=== PATIENT | female | born 1985 | race Caucasian/White ===

== ENCOUNTER 2018-11-08 08:42 | Inpatient (IN) | payer BC, OTHER ==
[2018-11-08] MEDS ORDERED: TERBUTALINE 1 MG/ML VIAL SQ PRN (10:09)
[2018-11-08] MEDS ORDERED: OXYTOCIN 10 UNIT/ML 1 ML VIAL IM PRN (10:09)
[2018-11-08] MEDS ORDERED: CARBOPROST TROMETHAMINE 250 MCG/ML 1 ML AMP IM PRN (10:09)
[2018-11-08] MEDS ORDERED: LIDOCAINE 0.5% (PF) 5 MG/ML (50 ML SDV) SQ PRN (10:09)
[2018-11-08] MEDS ORDERED: METHYLERGONOVINE 0.2 MG/ML 1 ML AMP IM PRN (10:09)
[2018-11-08] MEDS ORDERED: OXYTOCIN 20 UNITS/1000 ML NS 1,000 ML IV SCH ×2 (10:15→16:51)
[2018-11-08 10:18] VITALS: BMI 24.3
[2018-11-08 10:54] LABS: Basophils # (A) 0.1 k/uL (0-0.2); Basophils % (A) 1 %; Eosinophils # (A) 0.2 k/uL (0-0.7); Eosinophils % (A) 2 %; HCT 36.4 % (34.0-46.0); HGB 11.8 gm/dL (11.4-16.0); Hypochromasia Slight; Lymphocytes # (A) 2.5 k/uL (1.0-4.8); Lymphocytes % (A) 17 %; MCH 27.9 pg (25.0-35.0); MCHC 32.5 g/dL (31.0-37.0); MCV 85.8 fL (80.0-100.0); Mean Platelet Volume 7.6; Monocytes # (A) 0.8 k/uL (0-1.0); Monocytes % (A) 6 %; Neutrophils % (A) 71 %; Platelet Count 307 k/uL (150-450); RBC 4.24 m/uL (3.80-5.40); RDW 14.8 % (11.5-15.5); WBC 14.1 k/uL (3.8-10.6)
[2018-11-08] MEDS ORDERED: ROPIVACAINE 5MG/ML 20ML VIAL ONE (11:14)
[2018-11-08] MEDS ORDERED: SODIUM CHLORIDE 0.9% 100 ML BAG ONE (11:14)
[2018-11-08] MEDS ORDERED: fentaNYL (PF) 50 MCG/ML 5 ML AMP ONE (11:14)
[2018-11-08] MEDS: LACTATED RINGERS 1,000 ML IV SCH ×2 (11:36→14:56)
[2018-11-08] MEDS ORDERED: ROPIVACAINE 100 MG, fentaNYL (PF) 200 MCG in SODIUM CHLORIDE 0.9% 76 ML EPIDURAL ONE (11:53)
--- NOTE | 2018-11-08 12:24 | P.HPOB ---
History of Present Illness H&P Date: 11/08/18 Chief Complaint: contractions. This patient is a pleasant 33-year-old 2 para 1 female estimated date of confinement to 2018 estimated gestational age 39 weeks who presents to labor and delivery with complaints of regular painful contractions. Patient was 2 cm dilated and office is found to be 4 cm dilated in active labor. care has been uncomplicated. Review of Systems Gastrointestinal: Reports heartburn Genitourinary: Reports Menstruation: Reports amenorrhea Past Medical History Past Medical History: Seizure Disorder Additional Past Medical History / Comment(s): pt states her last seizure was 2 years ago pt states shes not on any medication for her seizure History of Any Multi-Drug Resistant Organisms: None Reported Past Surgical History: Orthopedic Surgery Past Psychological History: Anxiety Smoking Status: Former smoker Past Alcohol Use History: None Reported Past Drug Use History: None Reported - Past Family History Father Family Medical History: No Reported History Medications and Allergies Home Medications Medication Instructions Recorded Confirmed Type No Known Home Medications 11/08/18 11/08/18 History Allergies Allergy/AdvReac Type Severity Reaction Status Date / Time No Known Allergies Allergy Verified 11/08/18 08:55 Exam Vital Signs Temp Pulse Resp BP Pulse Ox 11/08/18 10:27 98 F 74 16 116/74 98 11/08/18 10:02 98 F 74 16 116/74 98 Intake and Output 11/07/18 11/08/18 11/08/18 22:59 06:59 14:59 Other: Weight 72.575 kg - OBG Physical Exam Abdomen: bowel sounds normal, no diffuse tenderness, no bruit present, no guarding noted, no hepatomegaly, no splenomegaly, no mass Vulva: both: normal Vagina: normal moisture, no discharge Cervix: no lesion (cervix is 4 cm 80% effaced -2 station artificial rupture membranes shows moderately thick meconium fluid.), no discharge Uterus: enlarged (fundal height is 38 cm) Results blood work shows she is O positive, rubella immune, RPR nonreactive, HIV nonreactive, hepatitis B negative, ultrasounds have been normal, Glucola was 168 with a normal three-hour gtt., group B strep was negative Result Diagrams: 11/08/18 10:00 Abnormal Lab Results - Last 24 Hours (Table) 11/08/18 Range/Units 10:00 WBC 14.1 H (3.8-10.6) k/uL Neutrophils # 10.0 H (1.3-7.7) k/uL Assessment and Plan Assessment: This is a pleasant 33-year-old 2 para 1 female 39 weeks gestation with active labor. Rupture membranes shows moderate meconium-stained fluid, heart tones are reactive. Plan is anticipate vaginal delivery and we will alert the anesthesia staff as to the meconium fluid. Dr. Lopez will be taken over this patient at this time. (1) 39 weeks gestation of Current Visit: Yes Status: Acute Code(s): Z3A.39 - 39 WEEKS GESTATION OF SNOMED Code(s): 17969516 (2) Normal labor Current Visit: Yes Status: Acute Code(s): O80 - ENCOUNTER FOR FULL-TERM UNCOMPLICATED DELIVERY; Z37.9 - OUTCOME OF DELIVERY, UNSPECIFIED SNOMED Code(s ): 07783759 (3) Meconium in amniotic fluid affecting management of mother Current Visit: Yes Status: Acute Code(s): O36.8990 - MATERNAL CARE FOR OTH PROBLEMS, UNSP TRIMESTER, UNSP SNOMED Code(s): 35228449
--- NOTE | 2018-11-08 12:35 | P.MSEPDOC ---
Presenting Problems - Arrival Data Date of Arrival on Unit: 11/08/18 Time of Arrival on Unit: 08:51 Mode of Transport: Ambulatory - Complaint OB-Reason for Admission/Chief Complaint: Other Comment: c/o contractions Medical History - Information : 2 Para: 1 Term: 1 : 0 Abortions: Spontaneous or Elective: 0 Number of Living Children: 1 - Gestational Age Gestational Age by VISH (wks/days): 39 Weeks and 0 Days Review of Systems - Review of Systems Constitutional: No problems Breast: No problems ENT: No problems Cardiovascular: No problems Respiratory: No problems Gastrointestinal: No problems Genitourinary: No problems Musculoskeletal: No problems Neurological: No problems Skin: No problems Vital Signs - Temperature Temperature: 98 F Temperature Source: Oral - Pulse Right Brachial Pulse Rate: 74 Pulse Assessment Method: Automatic Cuff - Respirations Respiratory Rate: 16 Oxygen Delivery Method: Room Air O2 Sat by Pulse Oximetry: 98 - Blood Pressure Right Arm Blood Pressure: 116/74 Blood Pressure Mean: 88 Blood Pressure Source: Automatic Cuff Medical Screen Scoring (Pre) - Cervical Exam Dilation: 1-3 cm = 1 Effacement: More than 50% = 2 Membranes: Intact - Uterine Contractions Frequency: > or = 36 weeks =2 Duration: > 40 seconds = 2 Intensity: Contraction palpated strong = 1 - Maternal Vital Signs Maternal Temperature: N/A Maternal Blood Pressure: N/A Signs of Preeclampsia: N/A Maternal Respirations: N/A - Assessment Baseline FHR: 130 Heart Rate - NICHD Category: Category I (Normal) = 0 NST: Reactive - Total Score Total Score (Pre): 8 - Level of Risk Level of Risk: Medium (6-9) Physician Notification (Pre) - Notification Comment Comment: pt admitted for labor Disposition - Disposition OB Disposition: Admit I agree with the RN Medical Screening Exam: Yes Risk & Benefit of care provided described in d/c instruction: Yes Diagnosis: ENCOUNTER FOR FULL-TERM UNCOMPLICATED DELIVERY
[2018-11-08] MEDS ORDERED: BISACODYL 10 MG SUPP RECTAL PRN (16:51)
[2018-11-08] MEDS ORDERED: SIMETHICONE 80 MG CHEWABLE PO PRN (16:51)
[2018-11-08] MEDS ORDERED: ACETAMINOPHEN TAB 325 MG TAB PO PRN (16:51)
[2018-11-08] MEDS ORDERED: diphenhydrAMINE 25 MG CAP PO PRN (16:51)
[2018-11-08] MEDS ORDERED: BENZOCAINE/MENTHOL SPRAY 1 GM/SPRAY AEROSOL TOPICAL PRN (16:51)
[2018-11-08] MEDS ORDERED: LANOLIN CREAM 5 GM TUBE TOPICAL PRN (16:51)
[2018-11-08] MEDS ORDERED: WITCH HAZEL 1 EACH MED..PAD TOPICAL PRN (16:51)
[2018-11-08] MEDS ORDERED: diphenhydrAMINE 50 MG/ML 1 ML VIAL IVP PRN (16:51)
[2018-11-08] MEDS ORDERED: HYDROCORTISONE 2.5% RECTAL CREAM 30 GM TUBE RECTAL PRN (16:51)
[2018-11-08] MEDS ORDERED: ZOLPIDEM 5 MG TAB PO PRN (16:51)
--- NOTE | 2018-11-08 18:13 | P.PROBDLV ---
Vaginal Delivery Note - . Vaginal Delivery Note: The patient progressed to complete dilation after oxytocin augmentation of labor and artificial rupture membranes with meconium fluid noted. She did receive epidural anesthesia. Once reaching complete dilation, she began pushing. 's head came to a crown. With one further push, the 's head delivered across the perineum followed by the anterior shoulder in a right occiput anterior lie. Nose and mouth were bulb suctioned at the perineum. Nuchal cord times one was doubly clamped and cut and reduced around the infant' s head. With one further push, the infant easily delivered and was placed on mother's abdomen and nose and mouth were again bulb suctioned. was taken to [facility] for evaluation by pediatric nursing staff, and [employer] was present for delivery. A viable female was noted with scores of 8 at 1 minute and 9 at 5 minutes and weight was 7 pounds 10.8 ounces. Placenta delivered shortly thereafter, intact, with a three-vessel cord. Uterus contracted well after oxytocin was given and uterine massage was carried out. A gloved hand was placed into the intrauterine cavity and no further membranes were palpated. Inspection of the perineum revealed a second-degree perineal laceration. This area was anesthetized with 1% lidocaine and sutured with 3-0 and 2-0 Vicryl suture in the usual multilayer fashion. She did have some bilateral periurethral abrasions that were noted to be hemostatic. Estimated blood loss is approximately 200 mL's. Both mother and are in stable condition.
[2018-11-08] MEDS: SENNOSIDES-DOCUSATE SODIUM 1 EACH TAB PO SCH (20:16)
[2018-11-08] MEDS: IBUPROFEN 600 MG TAB PO PRN (20:16)
[2018-11-09] MEDS: IBUPROFEN 600 MG TAB PO PRN ×4 (03:57→23:15)
--- NOTE | 2018-11-09 06:03 | P.PNOBGVD ---
Subjective - Subjective Patient reports: Reports appetite normal, Reports voiding normally, Reports pain well controlled, Reports ambulating normally : doing well Objective - Latest Vital Signs Latest vital signs: Vital Signs Temp Pulse Resp BP Pulse Ox 11/09/18 04:00 98.2 F 52 L 16 104/65 11/09/18 00:00 98.2 F 60 16 119/70 97 11/08/18 20:00 98.4 F 66 16 118/79 11/08/18 18:50 84 16 121/68 11/08/18 18:23 98.4 F 86 20 118/61 11/08/18 17:53 93 16 120/67 11/08/18 17:35 77 16 114/59 11/08/18 17:23 76 16 114/59 11/08/18 17:05 90 16 129/66 11/08/18 16:53 98.9 F 87 16 122/62 11/08/18 12:35 98 F 74 16 116/74 98 11/08/18 10:27 98 F 74 16 116/74 98 11/08/18 10:02 98 F 74 16 116/74 98 Intake and Output 11/08/18 11/08/18 11/09/18 14:59 22:59 06:59 Intake Total 50 Output Total 200 Balance 50 -200 Intake: Oral 50 Output: Estimated Blood Loss 200 Other: # Voids 2 Weight 72.575 kg - Exam Lungs: bilateral: normal Chest: Normal S1, Normal S2 Extremities: Present: normal Abdomen: Present: normal appearance, soft Uterus: Present: normal, firm - Labs Labs: Abnormal Lab Results - Last 24 Hours (Table) 11/08/18 Range/Units 10:00 WBC 14.1 H (3.8-10.6) k/uL Neutrophils # 10.0 H (1.3-7.7) k/uL Assessment and Plan Assessment: day #1. Patient is resting without complaints. Vital signs are stable she's afebrile. Uterus is firm nontender and she is normal lochia. I impression is a normal course. Patient's plan stained today we'll go home tomorrow. (1) 39 weeks gestation of Current Visit: Yes Status: Acute Code(s): Z3A.39 - 39 WEEKS GESTATION OF SNOMED Code(s): 56284148 (2) Normal labor Current Visit: Yes Status: Acute Code(s): O80 - ENCOUNTER FOR FULL-TERM UNCOMPLICATED DELIVERY; Z37.9 - OUTCOME OF DELIVERY, UNSPECIFIED SNOMED Code(s ): 95334673 (3) Meconium in amniotic fluid affecting management of mother Current Visit: Yes Status: Acute Code(s): O36.8990 - MATERNAL CARE FOR OTH PROBLEMS, UNSP TRIMESTER, UNSP SNOMED Code(s): 36621647
[2018-11-09] MEDS: HYDROcodone/APAP 5-325MG 1 EACH TAB PO PRN ×3 (08:22→19:49)
[2018-11-09] MEDS: SENNOSIDES-DOCUSATE SODIUM 1 EACH TAB PO SCH (08:22)
[2018-11-10] MEDS: SENNOSIDES-DOCUSATE SODIUM 1 EACH TAB PO SCH ×2 (01:18→09:40)
[2018-11-10] MEDS: HYDROcodone/APAP 5-325MG 1 EACH TAB PO PRN ×2 (02:31→09:38)
[2018-11-10] MEDS: IBUPROFEN 600 MG TAB PO PRN (05:27)
--- NOTE | 2018-11-10 06:05 | P.PNOBGVD ---
Subjective - Subjective Patient reports: Reports appetite normal, Reports voiding normally, Reports pain well controlled, Reports ambulating normally : doing well Objective - Latest Vital Signs Latest vital signs: Vital Signs Temp Pulse Resp BP Pulse Ox 11/09/18 23:45 97.8 F 53 L 16 120/70 99 11/09/18 15:00 97.9 F 84 20 129/85 11/09/18 07:57 98.5 F 77 16 123/72 Intake and Output 11/09/18 11/09/18 11/10/18 14:59 22:59 06:59 Intake Total 300 Balance 300 Intake: Oral 300 Other: # Voids 1 1 1 - Exam Lungs: bilateral: normal Chest: Normal S1, Normal S2 Extremities: Present: normal Abdomen: Present: normal appearance, soft Uterus: Present: normal, firm Assessment and Plan Assessment: day #2. Patient is resting without new complaints wishes to go home. Vital signs are stable she is afebrile. Uterus is firm nontender she's having normal lochia. My impression this is a normal course. Plan is to continue routine care discharge home later today. (1) 39 weeks gestation of Current Visit: Yes Status: Acute Code(s): Z3A.39 - 39 WEEKS GESTATION OF SNOMED Code(s): 49919229 (2) Normal labor Current Visit: Yes Status: Acute Code(s): O80 - ENCOUNTER FOR FULL-TERM UNCOMPLICATED DELIVERY; Z37.9 - OUTCOME OF DELIVERY, UNSPECIFIED SNOMED Code(s ): 88079728 (3) Meconium in amniotic fluid affecting management of mother Current Visit: Yes Status: Acute Code(s): O36.8990 - MATERNAL CARE FOR OTH PROBLEMS, UNSP TRIMESTER, UNSP SNOMED Code(s): 14258722
--- NOTE | 2018-11-10 06:17 | P.DS ---
Providers Date of admission: 11/08/18 09:43 Expected date of discharge: 11/10/18 Attending physician: Will Mooney Primary care physician: Stated None - Discharge Diagnosis(es) (1) 39 weeks gestation of Current Visit: Yes Status: Acute (2) Normal labor Current Visit: Yes Status: Acute (3) Meconium in amniotic fluid affecting management of mother Current Visit: Yes Status: Acute Hospital Course: Please see dictated H&P for intimate details of this patient's admission. Brief summary is a pleasant 33-year-old 2 para 1 female 39 weeks gestation admitted to labor and delivery in active labor. Patient was on have a vaginal delivery viable female . Please see dictated delivery note. day #2 patient's felt be stable for discharge home follow up with me in 6 weeks. Procedures: Normal spontaneous vaginal delivery Patient Condition at Discharge: Good Plan - Discharge Summary New Discharge Prescriptions: New HYDROcodone/APAP 5-325MG [[place] 5-325] 1 each PO Q6HR PRN #12 tab PRN Reason: Moderate Pain Ibuprofen [Motrin] 600 mg PO Q6HR PRN #40 tab PRN Reason: Mild Pain Or Fever >= 100.5 Discharge Medication List HYDROcodone/APAP 5-325MG [[place] 5-325] 1 each PO Q6HR PRN #12 tab 11/10/18 [Rx] Ibuprofen [Motrin] 600 mg PO Q6HR PRN #40 tab 11/10/18 [Rx] Follow up Appointment(s)/Referral(s): Will Mooney MD [STAFF PHYSICIAN] - 12/20/18 11:15 am Patient Instructions/Handouts: Vaginal Delivery (DC) Activity/Diet/Wound Care/Special Instructions: No intercourse or anything per vagina for 6 weeks. Please call if any fever, chills, excessive vaginal bleeding, and/or abdominal pain. Discharge Disposition: HOME SELF-CARE
[2018-11-10 09:20] VITALS: BP 118/75; PULSE 82; RESP 18; TEMP 98
== END 2018-11-10 10:58 | disposition home or self-care (01) | DRG 807 ==
LOC: FBPOP 08:42 → 4FBP 09:43
PROVIDERS: ADMIT Obstetrics & Gynecology; ATTEND Obstetrics & Gynecology
PROC: 10E0XZZ Delivery of Products of Conception, External Approach (ICD-10-PCS; principal; 2018-11-08)
PROC: 0KQM0ZZ Repair Perineum Muscle, Open Approach (ICD-10-PCS; 2018-11-08)
DX: O70.1 Second degree perineal laceration during delivery (principal); Z37.0 Single live birth; O77.0 Labor and delivery complicated by meconium in amniotic fluid; Z3A.39 39 weeks gestation of pregnancy
CPT/HCPCS: 59025; 85025; 86850; 86900; 86901; 88307; 99213

== ENCOUNTER 2019-04-18 23:43 | Emergency (ER) | payer OTHER ==
[2019-04-19 00:15] LABS: Basophils # (A) 0.2 k/uL (0-0.2); Basophils % (A) 1 %; Eosinophils # (A) 0.7 k/uL (0-0.7); Eosinophils % (A) 5 %; HCT 39.6 % (34.0-46.0); HGB 12.4 gm/dL (11.4-16.0); Lymphocytes # (A) 5.4 k/uL (1.0-4.8); Lymphocytes % (A) 38 %; MCH 27.6 pg (25.0-35.0); MCHC 31.4 g/dL (31.0-37.0); MCV 87.9 fL (80.0-100.0); Mean Platelet Volume 7.3; Monocytes # (A) 0.7 k/uL (0-1.0); Monocytes % (A) 5 %; Neutrophils # (A) 6.7 k/uL (1.3-7.7); Neutrophils % (A) 47 %; Platelet Count 414 k/uL (150-450); RBC 4.51 m/uL (3.80-5.40); RDW 14.2 % (11.5-15.5); WBC 14.3 k/uL (3.8-10.6)
[2019-04-19] MEDS ORDERED: KETAMINE 50 MG/ML 10 ML VIAL IM ONE (00:15)
[2019-04-19 00:25] LABS: Appearance,Urine Clear (Clear); Bilirubin,Urine Negative (Negative); Blood,Urine Negative (Negative); Color,Urine Light Yellow; Glucose,Urine (UA) Negative (Negative); Ketones,Urine Negative (Negative); Leukocyte Esterase,Urine Negative (Negative); Nitrite,Urine Negative (Negative); PH, Urine 5.5 (5.0-8.0); Protein,Urine Negative (Negative); Specific Gravity,Urine 1.004 (1.001-1.035); Urobilinogen,Urine <2.0 mg/dL (<2.0)
[2019-04-19 00:29] LABS: INR 0.9 (<1.2); Partial Thromboplastin Time 22.7 sec (22.0-30.0); Prothrombin Time 9.7 sec (9.0-12.0)
[2019-04-19 00:30] LABS: ALT 14 U/L (9-52); AST 23 U/L (14-36); African American GFR (CKD) >90 (>60 ml/min/1.73 sqM); Albumin 5.3 g/dL (3.5-5.0); Alkaline Phosphatase 107 U/L (38-126); Anion Gap 19 mmol/L; Blood Urea Nitrogen 15 mg/dL (7-17); Carbon Dioxide 19 mmol/L (22-30); Chloride 110 mmol/L (98-107); Glucose 121 mg/dL (74-99); Sodium 148 mmol/L (137-145); Total Bilirubin 0.4 mg/dL (0.2-1.3); Total Protein 8.5 g/dL (6.3-8.2)
[2019-04-19 00:35] LABS: Alcohol 291 mg/dL
[2019-04-19 01:03] LABS: Amphetamine Screen,Urine Not Detected (NotDetected); Barbiturate Screen,Urine Not Detected (NotDetected); Benzodiazepines Screen,Urine Not Detected (NotDetected); Cocaine Screen,Urine Not Detected (NotDetected); Methadone Screen, Urine Not Detected (NotDetected); Opiate Screen,Urine Not Detected (NotDetected); Oxycodone Screen, Urine Not Detected (NotDetected); Phencyclidine Screen,Urine Not Detected (NotDetected); Tricyclic Antidepressant,Urine Not Detected (NotDetected); Urn Cannabinoid Scrn Detected (NotDetected)
[2019-04-19] MEDS ORDERED: SODIUM CHLORIDE 0.9% 1,000 ML IV ONE ×2 (01:12→03:17)
--- NOTE | 2019-04-19 01:14 | XR ---
INDICATION: Trauma. COMPARISON: None. FINDINGS: AP view of the pelvis is submitted for interpretation. The sacroiliac joints, hip joints, and pubic symphysis are normally aligned. There is no evidence of acute fracture. IMPRESSION: No fracture or subluxation.
--- NOTE | 2019-04-19 01:15 | CT ---
CT CHEST With Contrast CT ABDOMEN + PELVIS With Contrast INDICATION: Trauma TECHNIQUE: CT acquisition is performed through the chest:, Abdomen, and pelvis following the administration of 100 mL Isovue-300 IV contrast. Coronal and sagittal reformatted images are provided. DOSE INFORMATION: DLP 604.7 mGy-cm. This CT exam was performed using one or more of the following dose reduction techniques: automated exposure control, adjustment of the mA and/or kV according to patient size, and/or use of iterative reconstruction technique. COMPARISON: None. FINDINGS: Chest: The thoracic aorta and main pulmonary artery are normal in caliber. The heart is normal in size. There is no pericardial effusion. There is no adenopathy. The lungs demonstrate mild dependent atelectatic changes. There is no airspace consolidation, pleural effusion, or pneumothorax. There are no acute osseous findings. Abdomen + Pelvis: There is no evidence of solid organ, vascular, bowel, or bladder injury. There is no free fluid or free air. Liver, gallbladder, spleen, pancreas, adrenal glands, and kidneys are unremarkable. Aorta and IVC are normal. There is no adenopathy. There are no obstructive or inflammatory changes of the bowel. The appendix is normal. Urinary bladder and uterus are unremarkable. There are no acute osseous findings. IMPRESSION: 1. No evidence of acute traumatic injury in the chest, abdomen, or pelvis. INDICATION: Trauma TECHNIQUE: CT acquisition is performed through the cervical spine. Coronal and sagittal reformatted images are provided. No IV contrast is administered. DOSE INFORMATION: DLP 230.2 mGy-cm. This CT exam was performed using one or more of the following dose reduction techniques: automated exposure control, adjustment of the mA and/or kV according to patient size, and/or use of iterative reconstruction technique. COMPARISON: None. FINDINGS: There is normal vertebral body height and alignment. There is no evidence of acute fracture or subluxation. Disc spaces are preserved. There is no high-grade spinal canal or foraminal narrowing. There is no prevertebral soft tissue swelling. The lung apices are clear. IMPRESSION: No evidence of acute osseous abnormality.
--- NOTE | 2019-04-19 01:15 | XR ---
INDICATION: Trauma. COMPARISON: None. FINDINGS: AP view of the chest is submitted for interpretation. Heart size and pulmonary vascularity are normal. The lungs are clear. There is no pleural effusion or pneumothorax. Regional skeleton appears intact. IMPRESSION: No evidence of acute cardiopulmonary process.
--- NOTE | 2019-04-19 01:15 | CT ---
CT HEAD INDICATION: Trauma TECHNIQUE: CT acquisition is performed through the brain. Coronal and sagittal reformatted images are provided. No IV contrast is administered. DOSE INFORMATION: DLP 1073 mGy-cm. This CT exam was performed using one or more of the following dose reduction techniques: automated exposure control, adjustment of the mA and/or kV according to patient size, and/or use of iterative reconstruction technique. COMPARISON: None. FINDINGS: There is no evidence of acute intracranial hemorrhage or abnormal extra-axial fluid collection. There is no mass effect or midline shift. Sulci, ventricles, and basal cisterns are normal in size and configuration. The begum-white matter differentiation is preserved. The calvarium is intact. The visualized paranasal sinuses and mastoid air cells are clear. IMPRESSION: No CT evidence of acute intracranial process. CT C SPINE INDICATION: Trauma TECHNIQUE: CT acquisition is performed through the cervical spine. Coronal and sagittal reformatted images are provided. No IV contrast is administered. DOSE INFORMATION: DLP 230.2 mGy-cm. This CT exam was performed using one or more of the following dose reduction techniques: automated exposure control, adjustment of the mA and/or kV according to patient size, and/or use of iterative reconstruction technique. COMPARISON: None. FINDINGS: There is normal vertebral body height and alignment. There is no evidence of acute fracture or subluxation. Disc spaces are preserved. There is no high-grade spinal canal or foraminal narrowing. There is no prevertebral soft tissue swelling. The lung apices are clear. IMPRESSION: No evidence of acute osseous abnormality.
[2019-04-19 01:57] LABS: Anisocytosis (M) Present
[2019-04-19 01:58] LABS: Large Platelets Present
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
[2019-04-19 05:00] VITALS: BP 128/77; PULSE 86; RESP 17; TEMP 97.8
== END 2019-04-19 05:35 | disposition home or self-care (01) ==
LOC: EC 23:43
DX: F10.129 Alcohol abuse with intoxication, unspecified (principal); R45.1 Restlessness and agitation; R00.0 Tachycardia, unspecified; Z87.891 Personal history of nicotine dependence; V48.5XXA Car driver injured in noncollision transport accident in traffic accident, initial encounter; Y92.410 Unspecified street and highway as the place of occurrence of the external cause
CPT/HCPCS: 99285; 96360; 96361 ×2; 36415; 93005; 86900; 86901; 80053; 83605; 84484; 85025; 85610; 85730; 86850; 81003; 81025; 80306; 80320; 72170; 71045; 72125; 70450; 71260; 74177; Q9967

== ENCOUNTER 2021-08-09 12:24 | Emergency (ER) | payer OTHER ==
[2021-08-09 12:29] VITALS: TEMP 98.4
[2021-08-09] MEDS ORDERED: SODIUM CHLORIDE 0.9% 1,000 ML IV STA (12:35)
[2021-08-09 12:58] LABS: Basophils # (A) 0.1 k/uL (0-0.2); Basophils % (A) 1 %; Eosinophils # (A) 0.2 k/uL (0-0.7); Eosinophils % (A) 2 %; HGB 12.5 gm/dL (11.4-16.0); Lymphocytes # (A) 2.8 k/uL (1.0-4.8); Lymphocytes % (A) 24 %; MCHC 32.1 g/dL (31.0-37.0); MCV 93.3 fL (80.0-100.0); Mean Platelet Volume 7.7; Monocytes # (A) 0.6 k/uL (0-1.0); Monocytes % (A) 5 %; Neutrophils % (A) 66 %; Platelet Count 388 k/uL (150-450); RBC 4.18 m/uL (3.80-5.40); RDW 13.8 % (11.5-15.5)
[2021-08-09] MEDS ORDERED: ACETAMINOPHEN TAB 500 MG TAB PO STA (13:02)
[2021-08-09 13:12] LABS: ALT 14 U/L (4-34); AST 23 U/L (14-36); African American GFR (CKD) >90 (>60 ml/min/1.73 sqM); Alcohol <10 mg/dL; Alkaline Phosphatase 76 U/L (38-126); Anion Gap 11 mmol/L; Blood Urea Nitrogen 10 mg/dL (7-17); Calcium 9.5 mg/dL (8.4-10.2); Carbon Dioxide 16 mmol/L (22-30); Chloride 106 mmol/L (98-107); Creatine Kinase 130 U/L (30-135); Glucose 120 mg/dL (74-99); Magnesium 1.7 mg/dL (1.6-2.3); Non-African American GFR(CKD) >90 (>60 ml/min/1.73 sqM); Potassium 3.6 mmol/L (3.5-5.1); Sodium 133 mmol/L (137-145); Total Bilirubin 0.5 mg/dL (0.2-1.3); Total Protein 6.9 g/dL (6.3-8.2)
--- NOTE | 2021-08-09 14:11 | ED ---
Seizure HPI <Romario Moore Marianela - Last Filed: 08/09/21 17:06> - General Source: patient, EMS Mode of arrival: EMS <Constance Cha - Last Filed: 08/10/21 14:37> - General Chief Complaint: Seizure Stated Complaint: Seizure Time Seen by Provider: 08/09/21 12:25 - History of Present Illness Initial Comments: 35-year-old female past medical history of epilepsy presents emergency department after she had 2 seizures at home. is at bedside and helps provide history. Patient had first seizure around 5 AM while the was in the shower. Unsure how long the seizure lasted. The patient did return to her normal baseline. She had a second seizure around 10:30 AM. This was when the found the patient on the floor next to the couch that she had been sitting on. Last seizure was approximately 3-4 months ago. She has not seen a neurologist in 8 years. Her medications are normally prescribed by Dr. Hernandez. She was started on Viibryd 6 months ago. The patient did bite her tongue. No bowel or bladder incontinence. Does report to a strong global headache without visual changes. No neck pain or stiffness. No recent fevers, chills or infections. Denies concern for . No other alleviating, precipitating or modifying factors (Constance Cha) - Related Data Previous Rx's Medication Instructions Recorded HYDROcodone/APAP 5-325MG [[place] 1 each PO Q6HR PRN #12 tab 11/10/18 5-325] Ibuprofen [Motrin] 600 mg PO Q6HR PRN #40 tab 11/10/18 Allergies Allergy/AdvReac Type Severity Reaction Status Date / Time No Known Allergies Allergy Verified 08/09/21 12:29 Review of Systems ROS Other: All systems not noted in ROS Statement are negative. <YolieRomario murray - Last Filed: 08/09/21 17:06> ROS Other: All systems not noted in ROS Statement are negative. <Constance Cha - Last Filed: 08/10/21 14:37> ROS Statement: Those systems with pertinent positive or pertinent negative responses have been documented in the HPI. Past Medical History Past Medical History: Seizure Disorder Additional Past Medical History / Comment(s): pt states her last seizure was 2 years ago pt states shes not on any medication for her seizure History of Any Multi-Drug Resistant Organisms: None Reported Past Surgical History: Orthopedic Surgery Past Psychological History: Anxiety Past Alcohol Use History: None Reported Past Drug Use History: None Reported - Past Family History Father Family Medical History: No Reported History <Constance Cha Clare - Last Filed: 08/10/21 14:37> General Exam General appearance: alert, anxious, other (crying) Head exam: Present: atraumatic, normocephalic, normal inspection Eye exam: Present: normal appearance, PERRL, EOMI. Absent: scleral icterus, conjunctival injection, periorbital swelling ENT exam: Present: mucous membranes moist, other (ecchymosis bilateral sides of tongue) Neck exam: Present: normal inspection. Absent: tenderness, meningismus, lymphadenopathy Respiratory exam: Present: normal lung sounds bilaterally. Absent: respiratory distress, wheezes, rales, rhonchi, stridor Cardiovascular Exam: Present: regular rate, normal rhythm, normal heart sounds. Absent: systolic murmur, diastolic murmur, rubs, gallop, clicks GI/Abdominal exam: Present: soft, normal bowel sounds. Absent: distended, tenderness, guarding, rebound, rigid Extremities exam: Present: normal inspection, full ROM, normal capillary refill. Absent: tenderness, pedal edema, joint swelling, calf tenderness Back exam: Present: normal inspection Neurological exam: Present: alert, oriented X3, CN II-XII intact Psychiatric exam: Present: anxious, other (crying) Skin exam: Present: warm, dry, intact, normal color. Absent: rash <Constance Cha - Last Filed: 08/10/21 14:37> Course Vital Signs 08/09/21 08/09/21 08/09/21 12:25 15:04 17:40 Temperature 98.4 F Pulse Rate 78 74 68 Respiratory 18 18 16 Rate Blood Pressure 96/52 103/57 103/64 O2 Sat by Pulse 100 99 98 Oximetry Medical Decision Making - Lab Data Result diagrams: 08/09/21 12:38 08/09/21 12:38 <Romario Moore - Last Filed: 08/09/21 17:06> - Lab Data Result diagrams: 08/09/21 12:38 08/09/21 12:38 <Constance Cha - Last Filed: 08/10/21 14:37> - Medical Decision Making UA showing 2+ ketones, 7 white cells, no bacteria, culture will be sent. Patient is not having any urinary symptoms. She is feeling much better and eager for discharge. Lactic acid normalized. (Romario Moore) Upon arrival the patient is placed into room 1. A thorough history and physical exam is performed. IV is established the patient is given a liter bolus of normal saline. She is also given a gram of Tylenol for her headache. Laboratory studies are conducted and she did go over for CT of her head because of the trauma and significant headache. CT of the brain demonstrates no acute findings. Patient does take her home medications for seizures. Trileptal level is pending. UA is currently pending at this time. Patient is reevaluated and continues to have a headache therefore she is given a migraine cocktail. Evaluation after this the patient reports that her pain is completely improved. Patient will be signed out to Dr. Moore pending UA results (Constance Cha) - Lab Data Lab Results 08/09/21 08/09/21 08/09/21 Range/Units 12:38 12:38 12:38 WBC 12.0 H (3.8-10.6) k/uL RBC 4.18 (3.80-5.40) m/uL Hgb 12.5 (11.4-16.0) gm/dL Hct 39.0 (34.0-46.0) % MCV 93.3 (80.0-100.0) fL MCH 30.0 (25.0-35.0) pg MCHC 32.1 (31.0-37.0) g/dL RDW 13.8 (11.5-15.5) % Plt Count 388 (150-450) k/uL MPV 7.7 Neutrophils % 66 % Lymphocytes % 24 % Monocytes % 5 % Eosinophils % 2 % Basophils % 1 % Neutrophils # 8.0 H (1.3-7.7) k/uL Lymphocytes # 2.8 (1.0-4.8) k/uL Monocytes # 0.6 (0-1.0) k/uL Eosinophils # 0.2 (0-0.7) k/uL Basophils # 0.1 (0-0.2) k/uL Sodium 133 L (137-145) mmol/L Potassium 3.6 (3.5-5.1) mmol/L Chloride 106 (98-107) mmol/L Carbon Dioxide 16 L (22-30) mmol/L Anion Gap 11 mmol/L BUN 10 (7-17) mg/dL Creatinine 0.60 (0.52-1.04) mg/dL Est GFR (CKD-EPI)AfAm >90 (>60 ml/min/1.73 sqM) Est GFR (CKD-EPI)NonAf >90 (>60 ml/min/1.73 sqM) Glucose 120 H (74-99) mg/dL Lactic Ac Sepsis Rflx Plasma Lactic Acid Marco A 3.5 H* (0.7-2.0) mmol/L Calcium 9.5 (8.4-10.2) mg/dL Magnesium 1.7 (1.6-2.3) mg/dL Total Bilirubin 0.5 (0.2-1.3) mg/dL AST 23 (14-36) U/L ALT 14 (4-34) U/L Alkaline Phosphatase 76 (38-126) U/L Creatine Kinase 130 (30-135) U/L Total Protein 6.9 (6.3-8.2) g/dL Albumin 4.0 (3.5-5.0) g/dL Urine Color Urine Appearance (Clear) Urine pH (5.0-8.0) Ur Specific [place] (1.001-1.035) Urine Protein (Negative) Urine Glucose (UA) (Negative) Urine Ketones (Negative) Urine Blood (Negative) Urine Nitrite (Negative) Urine Bilirubin (Negative) Urine Urobilinogen (<2.0) mg/dL Ur Leukocyte Esterase (Negative) Urine RBC (0-5) /hpf Urine WBC (0-5) /hpf Ur Squamous Epith Cells (0-4) /hpf Urine Mucus (None) /hpf Urine HCG, Qual (Not Detectd) Urine Opiates Screen (NotDetected) Ur Oxycodone Screen (NotDetected) Urine Methadone Screen (NotDetected) Ur Propoxyphene Screen (NotDetected) Ur Barbiturates Screen (NotDetected) U Tricyclic Antidepress (NotDetected) Ur Phencyclidine Scrn (NotDetected) Ur Amphetamines Screen (NotDetected) U Methamphetamines Scrn (NotDetected) U Benzodiazepines Scrn (NotDetected) Urine Cocaine Screen (NotDetected) U Marijuana (THC) Screen (NotDetected) Serum Alcohol <10 mg/dL 08/09/21 08/09/21 08/09/21 Range/Units 13:21 15:46 16:25 WBC (3.8-10.6) k/uL RBC (3.80-5.40) m/uL Hgb (11.4-16.0) gm/dL Hct (34.0-46.0) % MCV (80.0-100.0) fL MCH (25.0-35.0) pg MCHC (31.0-37.0) g/dL RDW (11.5-15.5) % Plt Count (150-450) k/uL MPV Neutrophils % % Lymphocytes % % Monocytes % % Eosinophils % % Basophils % % Neutrophils # (1.3-7.7) k/uL Lymphocytes # (1.0-4.8) k/uL Monocytes # (0-1.0) k/uL Eosinophils # (0-0.7) k/uL Basophils # (0-0.2) k/uL Sodium (137-145) mmol/L Potassium (3.5-5.1) mmol/L Chloride (98-107) mmol/L Carbon Dioxide (22-30) mmol/L Anion Gap mmol/L BUN (7-17) mg/dL Creatinine (0.52-1.04) mg/dL Est GFR (CKD-EPI)AfAm (>60 ml/min/1.73 sqM) Est GFR (CKD-EPI)NonAf (>60 ml/min/1.73 sqM) Glucose (74-99) mg/dL Lactic Ac Sepsis Rflx Y Plasma Lactic Acid Marco A 0.8 (0.7-2.0) mmol/L Calcium (8.4-10.2) mg/dL Magnesium (1.6-2.3) mg/dL Total Bilirubin (0.2-1.3) mg/dL AST (14-36) U/L ALT (4-34) U/L Alkaline Phosphatase (38-126) U/L Creatine Kinase (30-135) U/L Total Protein (6.3-8.2) g/dL Albumin (3.5-5.0) g/dL Urine Color Yellow Urine Appearance Cloudy H (Clear) Urine pH 6.0 (5.0-8.0) Ur Specific [place] 1.020 (1.001-1.035) Urine Protein Trace H (Negative) Urine Glucose (UA) Negative (Negative) Urine Ketones 2+ H (Negative) Urine Blood Moderate H (Negative) Urine Nitrite Negative (Negative) Urine Bilirubin Negative (Negative) Urine Urobilinogen <2.0 (<2.0) mg/dL Ur Leukocyte Esterase Small H (Negative) Urine RBC 1 (0-5) /hpf Urine WBC 7 H (0-5) /hpf Ur Squamous Epith Cells 3 (0-4) /hpf Urine Mucus Few H (None) /hpf Urine HCG, Qual (Not Detectd) Urine Opiates Screen Not Detected (NotDetected) Ur Oxycodone Screen Not Detected (NotDetected) Urine Methadone Screen Not Detected (NotDetected) Ur Propoxyphene Screen Not Detected (NotDetected) Ur Barbiturates Screen Not Detected (NotDetected) U Tricyclic Antidepress Not Detected (NotDetected) Ur Phencyclidine Scrn Not Detected (NotDetected) Ur Amphetamines Screen Detected H (NotDetected) U Methamphetamines Scrn Not Detected (NotDetected) U Benzodiazepines Scrn Not Detected (NotDetected) Urine Cocaine Screen Not Detected (NotDetected) U Marijuana (THC) Screen Detected H (NotDetected) Serum Alcohol mg/dL 08/09/21 Range/Units 16:25 WBC (3.8-10.6) k/uL RBC (3.80-5.40) m/uL Hgb (11.4-16.0) gm/dL Hct (34.0-46.0) % MCV (80.0-100.0) fL MCH (25.0-35.0) pg MCHC (31.0-37.0) g/dL RDW (11.5-15.5) % Plt Count (150-450) k/uL MPV Neutrophils % % Lymphocytes % % Monocytes % % Eosinophils % % Basophils % % Neutrophils # (1.3-7.7) k/uL Lymphocytes # (1.0-4.8) k/uL Monocytes # (0-1.0) k/uL Eosinophils # (0-0.7) k/uL Basophils # (0-0.2) k/uL Sodium (137-145) mmol/L Potassium (3.5-5.1) mmol/L Chloride (98-107) mmol/L Carbon Dioxide (22-30) mmol/L Anion Gap mmol/L BUN (7-17) mg/dL Creatinine (0.52-1.04) mg/dL Est GFR (CKD-EPI)AfAm (>60 ml/min/1.73 sqM) Est GFR (CKD-EPI)NonAf (>60 ml/min/1.73 sqM) Glucose (74-99) mg/dL Lactic Ac Sepsis Rflx Plasma Lactic Acid Marco A (0.7-2.0) mmol/L Calcium (8.4-10.2) mg/dL Magnesium (1.6-2.3) mg/dL Total Bilirubin (0.2-1.3) mg/dL AST (14-36) U/L ALT (4-34) U/L Alkaline Phosphatase (38-126) U/L Creatine Kinase (30-135) U/L Total Protein (6.3-8.2) g/dL Albumin (3.5-5.0) g/dL Urine Color Urine Appearance (Clear) Urine pH (5.0-8.0) Ur Specific [place] (1.001-1.035) Urine Protein (Negative) Urine Glucose (UA) (Negative) Urine Ketones (Negative) Urine Blood (Negative) Urine Nitrite (Negative) Urine Bilirubin (Negative) Urine Urobilinogen (<2.0) mg/dL Ur Leukocyte Esterase (Negative) Urine RBC (0-5) /hpf Urine WBC (0-5) /hpf Ur Squamous Epith Cells (0-4) /hpf Urine Mucus (None) /hpf Urine HCG, Qual Not Detected (Not Detectd) Urine Opiates Screen (NotDetected) Ur Oxycodone Screen (NotDetected) Urine Methadone Screen (NotDetected) Ur Propoxyphene Screen (NotDetected) Ur Barbiturates Screen (NotDetected) U Tricyclic Antidepress (NotDetected) Ur Phencyclidine Scrn (NotDetected) Ur Amphetamines Screen (NotDetected) U Methamphetamines Scrn (NotDetected) U Benzodiazepines Scrn (NotDetected) Urine Cocaine Screen (NotDetected) U Marijuana (THC) Screen (NotDetected) Serum Alcohol mg/dL - EKG Data EKG Comments: EKG demonstrates normal sent rhythm with ventricular rate of 60. SD interval 150. QRS 82. QTC of 422. No acute ST segment elevations or depressions concerning for ischemic changes (Contsance Cha) Disposition Is patient prescribed a controlled substance at d/c from ED?: No Time of Disposition: 17:07 <Romario Moore - Last Filed: 08/09/21 17:06> <Constance Cha - Last Filed: 08/10/21 14:37> Clinical Impression: Generalized seizure Disposition: HOME SELF-CARE Condition: Good Instructions (If sedation given, give patient instructions): Seizure/Epilepsy Discharge Instructions & Follow-Up, Recurrent Seizures in Adults (ED) Referrals: None,Stated [Primary Care Provider] - 1-2 days Keegan Ortega Jr, DO [Doctor of Osteopathic Medicine] - 1-2 days
[2021-08-09] MEDS ORDERED: DEXAMETHASONE SOD PHOSPHATE 10 MG/ML 1 ML VIAL IV STA (14:18)
[2021-08-09] MEDS ORDERED: KETOROLAC 15 MG/ML 1 ML VIAL IVP STA (14:18)
[2021-08-09] MEDS ORDERED: METOCLOPRAMIDE 5 MG/ML 2 ML VIAL IVP STA (14:18)
[2021-08-09] MEDS ORDERED: diphenhydrAMINE 50 MG/ML 1 ML VIAL IVP STA (14:18)
[2021-08-09] MEDS ORDERED: MAGNESIUM SULFATE-D5W PMX 1 GM in DEXTROSE/WATER 1 100ML.BAG IVPB ONE (14:19)
--- NOTE | 2021-08-09 15:02 | CT ---
EXAMINATION TYPE: CT brain wo con DATE OF EXAM: 08/09/2021 COMPARISON: 04/19/2019 HISTORY: seizure CT DLP: 1068.4 mGycm Automated exposure control for dose reduction was used. Images obtained of the brain without contrast. Ventricles and sulci appear normal. There is no mass effect nor midline shift. There is no sign of in tracranial hemorrhage. The calvarium is intact. IMPRESSION: Negative unenhanced head CT scan.
[2021-08-09 16:42] LABS: Appearance,Urine Cloudy (Clear); Bilirubin,Urine Negative (Negative); Blood,Urine Moderate (Negative); Color,Urine Yellow; Glucose,Urine (UA) Negative (Negative); Ketones,Urine 2+ (Negative); Leukocyte Esterase,Urine Small (Negative); Mucus,Urine Few /hpf; Nitrite,Urine Negative (Negative); Protein,Urine Trace (Negative); RBC,Urine 1 /hpf (0-5); Squamous Epithelial Cell,Urine 3 /hpf (0-4); Urobilinogen,Urine <2.0 mg/dL (<2.0); WBC,Urine 7 /hpf (0-5)
[2021-08-09 16:48] LABS: Amphetamine Screen,Urine Detected (NotDetected); Barbiturate Screen,Urine Not Detected (NotDetected); Benzodiazepines Screen,Urine Not Detected (NotDetected); Cocaine Screen,Urine Not Detected (NotDetected); Methadone Screen, Urine Not Detected (NotDetected); Opiate Screen,Urine Not Detected (NotDetected); Oxycodone Screen, Urine Not Detected (NotDetected); Phencyclidine Screen,Urine Not Detected (NotDetected); Tricyclic Antidepressant,Urine Not Detected (NotDetected); Urn Cannabinoid Scrn Detected (NotDetected)
[2021-08-09 17:42] VITALS: BP 103/64; PULSE 68; RESP 16
== END 2021-08-09 17:47 | disposition home or self-care (01) ==
LOC: EC 12:24
DX: G40.909 Epilepsy, unspecified, not intractable, without status epilepticus (principal); Z79.1 Long term (current) use of non-steroidal anti-inflammatories (NSAID)
CPT/HCPCS: 36415; 93005; 80053; 80183; 82550; 83605; 83735; 85025; 81001; 81025; 80306; 80320; 70450; 99285; 96365; 96375 ×4; 96361 ×2; J1200; J1100; J2765; J3475; J1885

== ENCOUNTER 2023-10-07 10:44 | Emergency (ER) | payer BC ==
[2023-10-07 11:51] VITALS: TEMP 98
--- NOTE | 2023-10-07 13:07 | ED ---
URI HPI - General Chief Complaint: Upper Respiratory Infection Stated Complaint: Chest pains Time Seen by Provider: 10/07/23 12:17 Source: patient, RN notes reviewed Mode of arrival: ambulatory Limitations: no limitations - History of Present Illness Initial Comments: 38-year-old female with no significant past medical history presents the emergency department with a chief complaint of upper respiratory symptoms. Patient reports cough, congestion, chills and chest tightness that started 4 days ago. It has worsened over the last 2 days. She denies any known recent sick contacts. She denies any significant past medical history. She's not been taking any OTC for her symptoms. - Related Data Previous Rx's Medication Instructions Recorded HYDROcodone/APAP 5-325MG [[place] 1 each PO Q6HR PRN #12 tab 11/10/18 5-325] Ibuprofen [Motrin] 600 mg PO Q6HR PRN #40 tab 11/10/18 Benzonatate [Tessalon Perles] 100 mg PO TID PRN #15 capsule 10/07/23 Allergies Allergy/AdvReac Type Severity Reaction Status Date / Time No Known Allergies Allergy Verified 10/07/23 11:50 Review of Systems ROS Statement: Those systems with pertinent positive or pertinent negative responses have been documented in the HPI. ROS Other: All systems not noted in ROS Statement are negative. Past Medical History Past Medical History: Seizure Disorder Additional Past Medical History / Comment(s): pt states her last seizure was 2 years ago pt states shes not on any medication for her seizure History of Any Multi-Drug Resistant Organisms: None Reported Past Surgical History: Orthopedic Surgery Past Psychological History: Anxiety Smoking Status: Current every day smoker Past Alcohol Use History: None Reported Past Drug Use History: None Reported - Past Family History Father Family Medical History: No Reported History General Exam - General Exam Comments Initial Comments: General: Alert, in no acute distress Head: atraumatic normocephalic. Eyes PERRL, EOMI intact, mucous membranes moist Respiratory: Lungs clear to auscultation bilaterally Cardiovascular: Heart rate regular rate and rhythm Abdominal: Soft without guarding or rebound Extremities: Normal inspection with full range of motion and normal capillary refill Neuroogic: alert and oriented 3, CN II-XII intact, able to ambulate with steady gait Skin: warm dry and intact with normal color Limitations: no limitations Course Vital Signs 10/07/23 11:47 Temperature 98 F Pulse Rate 91 Respiratory 18 Rate Blood Pressure 126/80 O2 Sat by Pulse 96 Oximetry Medical Decision Making - Medical Decision Making Was pt. sent in by a medical professional or institution (STEPHEN Mckenna, NURSING ADMIN, urgent care, hospital, or jail...) When possible be specific @ -[No] Did you speak to anyone other than the patient for history (EMS, parent, family, police, friend...)? What history was obtained from this source @ -[No] Did you review nursing and triage notes (agree or disagree)? Why? @ -[I reviewed and agree with nursing and triage notes] Were old charts reviewed (outside hosp., previous admission, EMS record, old EKG, old radiological studies, urgent care reports/EKG's, jail records)? Report findings @ -[No old charts were reviewed] Differential Diagnosis (chest pain, altered mental status, abdominal pain women, abdominal pain men, vaginal bleeding, weakness, fever, dyspnea, syncope, headache, dizziness, GI bleed, back pain, seizure, CVA, palpatations, mental health, musculoskeletal)? @ -[not applicable] EKG interpreted by me (3pts min.). @ -[As above] X-rays interpreted by me (1pt min.). @ -[None done] CT interpreted by me (1pt min.). @ -[None done] U/S interpreted by me (1pt. min.). @ -[None done] What testing was considered but not performed or refused? (CT, X-rays, U/S, labs)? Why? @ -[None] What meds were considered but not given or refused? Why? @ -[None] Did you discuss the management of the patient with other professionals (professionals i.e. STEPHEN Mckenna, NURSING ADMIN, lab, RT, psych nurse, vp digital marketing social media and crm, truck washer, teacher, employee service officer, skilled nursing case manager)? Give summary @ -[No] Was smoking cessation discussed for >3mins.? @ -[No] Was critical care preformed (if so, how long)? @ -[No] Were there social determinants of health that impacted care today? How? (Homelessness, low income, unemployed, alcoholism, drug addiction, transportation, low edu. Level, literacy, decrease access to med. care, fci, rehab)? @ -[No] Was there de-escalation of care discussed even if they declined (Discuss DNR or withdrawal of care, Hospice)? DNR status @ -[No] What co-morbidities impacted this encounter? (DM, HTN, Smoking, COPD, CAD, Cancer, CVA, ARF, Chemo, Hep., AIDS, mental health diagnosis, sleep apnea, morbid obesity)? @ -[None] Was patient admitted / discharged? Hospital course, mention meds given and route, prescriptions, significant lab abnormalities, going to OR and other pertinent info. @ -Discharged. This is a 38-year-old female who presents the emergency department with upper respiratory symptoms. Patient had thorough h istory and physical exam performed. She is nontoxic and non-ill appearing. Patient is afebrile. Heart rate regular rate and rhythm, lungs clear to auscultation bilaterally. Patient influenza A positive. I discussed results in detail with the patient verbalized understanding all questions were addressed. Symptomatic management Was encouraged. Patient be given Tessalon Perles for cough. Discharged in stable condition. Case is discussed with Dr. Torrez, ED attending who agrees with plan of care Undiagnosed new problem with uncertain prognosis? @ -[No] Drug Therapy requiring intensive monitoring for toxicity (Heparin, Nitro, Insulin, Cardizem)? @ -[No] Were any procedures done? @ -[No] Diagnosis/symptom? @ -Myalgias - Influenza A Acute, or Chronic, or Acute on Chronic? @ -Acute Uncomplicated (without systemic symptoms) or Complicated (systemic symptoms)? @ -Uncomplicated Side effects of treatment? @ -[No] Exacerbation, Progression, or Severe Exacerbation? @ -[No] Poses a threat to life or bodily function? How? (Chest pain, [place], NH, pneumonia, PE, COPD, DKA, ARF, appy, cholecystitis, CVA, Diverticulitis, Homicidal, Suicidal, threat to staff... and all critical care pts) @ -Low likelihood - Lab Data Lab Results 10/07/23 Range/Units 11:50 Influenza Type A (PCR) Detected A (Not Detectd) Influenza Type B (PCR) Not Detected (Not Detectd) RSV (PCR) Not Detected (Not Detectd) SARS-CoV-2 (PCR) Not Detected (Not Detectd) Disposition Clinical Impression: Influenza Disposition: HOME SELF-CARE Condition: Stable Instructions (If sedation given, give patient instructions): Influenza (ED) Additional Instructions: Take Tylenol or Motrin for pain Can take Tessalon Perles for cough Please return to the nearest emergency department if worsening symptoms Prescriptions: Benzonatate [Tessalon Perles] 100 mg PO TID PRN #15 capsule PRN Reason: Cough Is patient prescribed a controlled substance at d/c from ED?: No Referrals: Merlin Briggs MD [Primary Care Provider] - 1-2 days Time of Disposition: 13:07
[2023-10-07] MEDS ORDERED: BENZONATATE 100 MG CAP PO STA (13:23)
[2023-10-07] MEDS ORDERED: ACETAMINOPHEN TAB 325 MG TAB PO STA (13:23)
[2023-10-07 13:50] VITALS: BP 138/78; PULSE 78; RESP 16
== END 2023-10-07 13:43 | disposition home or self-care (01) ==
LOC: EC 10:44
DX: J10.1 Influenza due to other identified influenza virus with other respiratory manifestations (principal); F17.200 Nicotine dependence, unspecified, uncomplicated; Z20.822 Contact with and (suspected) exposure to COVID-19; Z86.59 Personal history of other mental and behavioral disorders
CPT/HCPCS: 87636; 99284

== ENCOUNTER → 2023-11-30 | Outpatient (CLI) | payer BC ==
--- NOTE | 2023-12-01 10:17 | XR ---
EXAMINATION TYPE: XR KUB DATE OF EXAM: 11/30/2023 Comparison: None Clinical History: 38-year-old female R10.9 UNSPECIFIED ABDOMINAL PAIN Findings: Lung bases are clear. No evidence for free intraperitoneal air. No dilated small bowel. Mild stool in the right side of the colon. No suspicious calcifications seen. IUD in place. Impression: Mild overall stone burden. IUD in place. Nonobstructive bowel gas pattern.
== END | disposition home or self-care (01) ==
LOC: RADXRMAIN 17:51
PROVIDERS: ATTEND Family Medicine
DX: N20.1 Calculus of ureter (principal); Z97.5 Presence of (intrauterine) contraceptive device; R10.9 Unspecified abdominal pain
CPT/HCPCS: 74018

== ENCOUNTER → 2023-12-01 | Outpatient (CLI) | payer BC ==
[2023-12-01 16:26] LABS: BUN/Creat Ratio 11.57 Ratio (12.00-20.00); Blood Urea Nitrogen 8.1 mg/dL (9.0-27.0); Calcium 9.2 mg/dL (8.7-10.3); Carbon Dioxide 24.7 mmol/L (21.6-31.8); Chloride 103 mmol/L (96-109); Glucose 86 mg/dL (70-110); Potassium 4.9 mmol/L (3.5-5.5); Sodium 139 mmol/L (135-145)
== END | disposition home or self-care (01) ==
LOC: LABWHC1 09:08
PROVIDERS: ATTEND Family Medicine
DX: R10.9 Unspecified abdominal pain (principal)
CPT/HCPCS: 36415; 80048